=== PATIENT | male | born 1935 | race Caucasian/White ===

== ENCOUNTER → 2021-11-04 | Outpatient (CLI) | payer MEDICARE ==
[2021-11-04 15:26] LABS: MEAN CORP HGB 33.2 pg (26-34); RED CELL DISTRIBUTION WIDTH 13.7 % (11.5-14.5)
[2021-11-04 15:53] LABS: CARBON DIOXIDE 23.6 mmol/L (20.0-32)
== END | disposition home or self-care (01) ==
LOC: LAB 15:02
PROVIDERS: ATTEND Family Medicine
DX: I10 Essential (primary) hypertension (principal); N40.0 Benign prostatic hyperplasia without lower urinary tract symptoms; E11.9 Type 2 diabetes mellitus without complications; E78.5 Hyperlipidemia, unspecified; Z79.899 Other long term (current) drug therapy; D63.8 Anemia in other chronic diseases classified elsewhere
CPT/HCPCS: 36415; 80053; 80061; 83036; 84153; 85027

== ENCOUNTER → 2021-11-20 | Outpatient (CLI) | payer MEDICARE | END | disposition home or self-care (01) | LOC: LAB 13:36 | PROVIDERS: ATTEND Family Medicine | DX: D53.9 Nutritional anemia, unspecified (principal) | CPT/HCPCS: 36415; 82607; 82746 ==

== ENCOUNTER → 2022-01-19 | Outpatient (CLI) | payer MEDICARE ==
[2022-01-19 14:31] LABS: BILIRUBIN,URINE NEGATIVE (NEGATIVE); UROBILINOGEN,URINE 0.2 E.U./dL (0.2)
[2022-01-19 14:48] LABS: CARBON DIOXIDE 26.3 mmol/L (20.0-32)
== END | disposition home or self-care (01) ==
LOC: LAB 14:01
PROVIDERS: ATTEND Internal Medicine Infectious Disease
DX: N17.9 Acute kidney failure, unspecified (principal); N18.30 Chronic kidney disease, stage 3 unspecified
CPT/HCPCS: 36415; 80053; 81003

== ENCOUNTER → 2022-06-29 | Outpatient (CLI) | payer MEDICARE ==
[2022-06-29 13:50] LABS: CARBON DIOXIDE 26.8 mmol/L (20.0-32)
[2022-06-29 14:01] LABS: BILIRUBIN,URINE NEGATIVE (NEGATIVE); UROBILINOGEN,URINE 0.2 E.U./dL (0.2)
== END | disposition home or self-care (01) ==
LOC: LAB 12:29
PROVIDERS: ATTEND Internal Medicine Infectious Disease
DX: I12.9 Hypertensive chronic kidney disease with stage 1 through stage 4 chronic kidney disease, or unspecified chronic kidney disease (principal); N18.32 Chronic kidney disease, stage 3b
CPT/HCPCS: 36415; 80053; 81003; 83735; 83970; 84100; 84550

== ENCOUNTER → 2022-06-29 | Outpatient (CLI) | payer MEDICARE ==
[2022-06-29 14:59] LABS: MEAN CORP HGB 33.4 pg (26-34); RED CELL DISTRIBUTION WIDTH 14.1 % (11.5-14.5)
[2022-06-29 15:06] LABS: CARBON DIOXIDE 24.6 mmol/L (20.0-32)
== END | disposition home or self-care (01) ==
LOC: LAB 14:15
PROVIDERS: ATTEND Family Medicine
DX: Z12.5 Encounter for screening for malignant neoplasm of prostate (principal); I10 Essential (primary) hypertension; E11.9 Type 2 diabetes mellitus without complications; N40.0 Benign prostatic hyperplasia without lower urinary tract symptoms; D63.8 Anemia in other chronic diseases classified elsewhere; E78.5 Hyperlipidemia, unspecified; Z79.899 Other long term (current) drug therapy
CPT/HCPCS: 80053; 80061; 83036; 85027